=== PATIENT | female | born 1970 ===

== ENCOUNTER 2020-03-04 18:48 | Outpatient (REF) | payer MEDICAID, SELFPAY ==
--- NOTE | 2020-03-04 | MR_ITS ---
MR LUMBAR SPINE WITHOUT CONTRAST CLINICAL INFORMATION: Low back pain and left-sided radiculopathy. COMPARISON: None available. TECHNIQUE: MRI of the lumbar spine was obtained using routine sequences without contrast. FINDINGS: There are 5 nonrib-bearing lumbar-type vertebral bodies. Straightening of the lumbar lordosis. Vertebral body heights are maintained. Lumbar disc volumes are preserved and the lumbar discs remain well-hydrated. There is no bone marrow edema. There are no acute fractures. The conus terminates at the L1 level. There is a small left renal cyst. L1-L2: There is a superiorly migrating left paracentral disc extrusion that compresses the left L1 nerve root within the left L1 lateral recess and as it enters the left L1-L2 neural foramen. No central canal stenosis and no right foraminal stenosis. L2-L3: Disc contour is normal. Bilateral facet arthropathy. No central canal stenosis and no foraminal stenosis. L3-L4: Small annular disc bulge with a superimposed far right lateral disc protrusion that results in mild right-sided foraminal encroachment without compressing the exiting right nerve root. No central canal stenosis. No left foraminal stenosis. L4-L5: Annular disc bulge with a left lateral annular fissure. No central canal stenosis and no foraminal stenosis. L5-S1: Small annular disc bulge and mild bilateral facet arthropathy. No central canal stenosis and no foraminal stenosis. MR/MR lumbar spine wo con IMPRESSION: - At L1-L2, there is a superiorly migrating left paracentral disc extrusion that compresses the left L1 nerve root within the left L1 lateral recess and as it enters the left L1-L2 neural foramen. - Additional mild spondylitic changes as discussed above. No severe central canal stenosis and no severe foraminal stenosis within the lumbar spine.
== END 2020-03-04 18:49 | disposition home or self-care (01) ==
LOC: HO.MRI 18:48
PROVIDERS: PCP Family Medicine; Visit Provider Family Medicine
DX: M54.5 Low back pain (principal)
CPT/HCPCS: 72148

== ENCOUNTER 2020-06-23 15:10 | Outpatient (REF) | payer MEDICAID, SELFPAY ==
--- NOTE | ~2020-06-23 | MM_ITS ---
EXAMINATION: MM SCREENING DIGITAL BREAST TOMOSYNTHESIS, BILATERAL CLINICAL INFORMATION: Screening. Asymptomatic. The lifetime risk of breast cancer based on the Tyrer-Cuzick Model is 15.6%. COMPARISON: Mammography: October 11, 2017 and studies dating back to December 16, 2012 TECHNIQUE: Digital breast tomosynthesis is performed in both the craniocaudal and mediolateral oblique views along with computer-aided detection (CAD). Synthesized 2D images are generated from the tomosynthesis. FINDINGS: There are scattered areas of fibroglandular density (ACR BI-RADS breast composition Category b). There are no significant masses, abnormal calcifications, or other abnormalities. MM/MM tomosynthesis screening BI IMPRESSION: There are no significant changes from prior study. ASSESSMENT: BI-RADS 1: Negative RECOMMENDATION: Routine annual mammography screening. This patient's information was entered into a reminder system with a target due date for their next mammogram.
== END 2020-06-23 15:11 | disposition home or self-care (01) ==
LOC: HO.MAMMO 15:10
PROVIDERS: Visit Provider Family Medicine
DX: Z12.31 Encounter for screening mammogram for malignant neoplasm of breast (principal)
CPT/HCPCS: 77063; 77067

== ENCOUNTER 2020-12-24 16:10 | Outpatient (REF) | payer MEDICAID, SELFPAY ==
--- NOTE | ~2020-12-24 | MR_ITS ---
EXAMINATION: MR ABDOMEN WITHOUT AND WITH CONTRAST CLINICAL INFORMATION: Liver lesion less than 1 cm. COMPARISON: Report from outside prior CT scan without contrast 12/06/2018 TECHNIQUE: MR abdomen was performed without and with use of 6.5 mL intravenous Gadavist gadolinium contrast. Postcontrast images are performed in multiphase dynamic sequences. Imaging was performed in 3 planes. FINDINGS: LUNG BASES: The visualized lung bases are unremarkable. LIVER, GALLBLADDER, AND BILIARY TREE: Liver is normal in size. Smooth hepatic contour. In the lateral aspect of the left lobe of the liver there is a multi lobular well-circumscribed 3.3 x 1.8 cm uniform hyperintense T2 lesion that demonstrates progressive nodular enhancement, classic appearance for a benign cavernous hemangioma. There is a second similar-appearing T2 bright well-circumscribed 2.3 cm lesion with progressive peripheral enhancement along the anterior aspect of left lobe of liver.. In the right lobe of liver there similar appearing 1.3 cm and 1.6 cm, also with typical MRI signal and enhancement characteristics of benign cavernous hemangiomata. The gallbladder is unremarkable with no evidence of gallbladder wall thickening, or obvious pericholecystic inflammatory changes. PANCREAS: Unremarkable. SPLEEN: Normal. ADRENAL GLANDS: Normal. KIDNEYS AND URETERS: The kidneys are normal in size, shape, and enhance symmetrically. No hydronephrosis. No perinephric stranding. GASTROINTESTINAL TRACT: No bowel obstruction. No ascites or fluid collection. ABDOMINAL WALL: No significant hernia is appreciated. LYMPH NODES: No lymphadenopathy. VASCULAR: Unremarkable. OSSEOUS STRUCTURES: Marrow signal normal. MR/MR abdomen wo/w con IMPRESSION: At least 4 lesions are seen within the liver, each with the typical MRI appearance for benign cavernous hepatic hemangiomas for which no imaging follow-up is recommended.
== END 2020-12-24 16:11 | disposition home or self-care (01) ==
LOC: HO.MRI 16:10
PROVIDERS: PCP Family Medicine; Visit Provider Family Medicine
DX: R16.0 Hepatomegaly, not elsewhere classified (principal)
CPT/HCPCS: 74183; A9585

== ENCOUNTER 2021-01-07 12:16 | Outpatient (REF) | payer MEDICAID, SELFPAY ==
[2021-01-07 14:32] LABS: COVID-19 Test Negative (Negative)
== END 2021-01-07 12:17 | disposition home or self-care (01) ==
LOC: HO.LAB 12:16
PROVIDERS: Visit Provider Internal Medicine
DX: Z20.822 Contact with and (suspected) exposure to COVID-19 (principal)
CPT/HCPCS: 36415; 87635; C9803

== ENCOUNTER 2021-06-27 12:34 | Outpatient (REF) | payer MEDICAID, SELFPAY ==
--- NOTE | ~2021-06-27 | MM_ITS ---
EXAMINATION: MM SCREENING DIGITAL BREAST TOMOSYNTHESIS, BILATERAL CLINICAL INFORMATION: Screening. Asymptomatic. The lifetime risk of breast cancer based on the Tyrer-Cuzick Model is 5%. COMPARISON: Mammography: 06/23/2020, 10/11/2017, 05/30/2016 TECHNIQUE: Digital breast tomosynthesis is performed in both the craniocaudal and mediolateral oblique views along with computer-aided detection (CAD). Synthesized 2D images are generated from the tomosynthesis. FINDINGS: There are scattered areas of fibroglandular density (ACR BI-RADS breast composition Category b). There are no significant masses, abnormal calcifications, or other abnormalities. Parenchymal pattern is similar to prior studies. There is no developing density or architectural abnormality. The axilla and skin contours are unremarkable. No significant changes. MM/MM tomosynthesis screening BI IMPRESSION: No mammographic evidence of malignancy. ASSESSMENT: BI-RADS 1: Negative RECOMMENDATION: Routine annual mammography screening. This patient's information was entered into a reminder system with a target due date for their next mammogram.
== END 2021-06-27 12:35 | disposition home or self-care (01) ==
LOC: HO.MAMMO 12:34
PROVIDERS: PCP Family Medicine; Visit Provider Family Medicine
DX: Z12.31 Encounter for screening mammogram for malignant neoplasm of breast (principal)
CPT/HCPCS: 77063; 77067

== ENCOUNTER 2022-05-21 10:16 | Emergency (ER) | payer OTHER, SELFPAY ==
[2022-05-21 10:21] VITALS: BP 140/88; PULSE 82; RESP 16; TEMP 36.4; O2SAT 97; BMI 24.4
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
== END 2022-05-21 11:07 | disposition home or self-care (01) ==
PROVIDERS: Emergency Provider Emergency Medicine; PCP Family Medicine
DX: L02.416 Cutaneous abscess of left lower limb (principal)
CPT/HCPCS: 99282

== ENCOUNTER 2022-08-06 14:54 | Emergency (ER) | payer OTHER, SELFPAY ==
[2022-08-06 15:12] VITALS: BP 155/85; PULSE 71; RESP 16; TEMP 36; O2SAT 96; BMI 24.4
--- NOTE | 2022-08-06 15:47 | ED.GENADULT ---
HPI - General Adult General Chief complaint: Extremity Injury, Lower Stated complaint: left hip swollen/ painful Time Seen by Provider: 08/06/22 15:33 Source: patient Mode of arrival: ambulatory Limitations: no limitations History of Present Illness HPI narrative: Patient is a 51-year-old female with no significant past medical history presenting to the emergency department with swelling, tenderness and erythema to left lateral hip for 2 weeks. She had prior hematoma in a similar area but patient states that her hematoma was distal to current erythema. She also complains of intermittent episodes of chest/epigastric pain lasting several seconds at a time for the past week. She also reports a scratchy throat and hoarse voice for the past several days, denies sore throat. Denies fevers. Denies shortness of breath at rest or associated with episodes of chest pain. Denies any history of bleeding or clotting disorders. Does not take any anticoagulants. Denies any falls, injury, or other trauma to left hip area prior to pain and swelling. Does report history of GERD. Denies abdominal pain, nausea, vomiting, diarrhea or constipation. Denies any radiation of pain from area of left hip swelling. Denies any numbness or tingling. MD complaint: Left hip pain and swelling, chest pain Onset (ago): day(s) Location: chest and lower extremity Radiation: non-radiation Severity: moderate Treatments prior to arrival: none Related Data Previous Rx's Medication Instructions Recorded cephalexin 500 mg capsule 500 mg PO QID 7 days #28 caps 05/21/22 doxycycline hyclate 100 mg tablet 100 mg PO BID 7 days #14 tabs 05/21/22 omeprazole 20 mg capsule,delayed 20 mg PO DAILY #14 caps 08/06/22 release cephalexin 500 mg capsule 500 mg PO QID #39 caps 08/07/22 doxycycline hyclate 100 mg capsule 100 mg PO BID #19 caps 08/07/22 Allergies Allergy/AdvReac Type Severity Reaction Status Date / Time metronidazole [Flagyl] Allergy Unknown Unknown Verified 08/06/22 15:12 Review of Systems Review of Systems: As per HPI. Yes all other systems are reviewed and are negative Constitutional: Constitutional: Reports as per HPI [facility] Social History Social History Advance Directives: No Advance Directives Information Provided: No Physical Exam ED Vital Signs: Vital Signs - 24 hr 08/06/22 15:12 Temperature 96.8 F Pulse Rate 71 Respiratory Rate 16 Blood Pressure 155/85 H Pulse Oximetry 96 Oxygen Delivery Method Room Air BMI result Body Mass Index 24.4 Vital signs have been reviewed and appear to be correct. Blood pressure elevated. Heart rate normal. Respiratory rate normal. Temperature normal. Oxygen saturation normal. Const General: cooperative, healthy appearing and no acute distress Orientation/consciousness: oriented to person, oriented to place, oriented to time and patient oriented x3 Limitations: no limitations HENMT Head: Yes normocephalic and Yes atraumatic Ears: external ears normal General nose exam: Normal external nose present Face and sinus: Yes face symmetric Mouth: oropharynx normal and moist mucous membranes Throat: Yes uvula midline Eyes Pupils: Equal, round and reactive pupils present Neck Neck: Yes normal visual inspection and Yes supple Chest Chest palpation & inspection: normal inspection of the chest and normal palpation of entire chest wall Resp Effort & Inspection: normal respiratory effort and able to speak in complete sentences Auscultation: clear to auscultation bilaterally Cardio Rate: regular rate Rhythm: regular rhythm Heart sounds: S1 normal heart sound present and S2 normal heart sound present GI Inspection: Yes normal to inspection Palpation (GI): Soft to palpation, nontender, no guarding and No Rebound tenderness present Auscultation: normoactive bowel sounds General: Yes no CVA tenderness Back/Spine/Pelvis Back: no CVA tenderness Skin Other: 6x2cm area of fluctuant erythema with warmth, no ulcerations or drainage General skin exam: elasticity normal and turgor normal Neuro General: oriented to person, oriented to place, oriented to time, patient oriented x3, moves all extremities, no focal motor deficits and CN's II-XI intact bilaterally Cranial nerves: Yes Equal, round and reactive pupils present Cognition (Neuro): normal cognition Extrem General: Yes full ROM, Yes no pedal edema and Yes no calf tenderness Psych Mental Status: mental status grossly normal Affect: normal affect Thought process: Normal thought process present Course Reevaluation(s) Reevaluation #1: Received a wet read that the patient has a 3 x 3.1 x 12 cm subcutaneous abscess that extends to the left iliac crest. I discussed with Radiology to make sure this was a superficial abscess and down extend to the muscle or bone and was told that it is only a superficial abscess. Unfortunately our PACS system is down, so I was not able to view the CT scan myself. However given night and appears to be a superficial abscess we will attempt incision and drainage. I discussed this with the patient using a Setswana in to Time: 23:55 Medications Administered Discontinued Medications Generic Name Dose Route Start Last Admin Trade Name Darion PRN Reason Stop Dose Admin Iohexol 100 ml 08/06/22 22:16 08/06/22 22:17 Iohexol 350 Mg/Ml 100 Ml Infus..Btl IV 08/06/22 22:17 85 ml ONCE ONE Administration Ketorolac Tromethamine 15 mg 08/06/22 16:25 08/06/22 18:27 Ketorolac Tromethamine 15 Mg/Ml Vial IVPUSH 08/06/22 16:26 Not Given ONCE ONE Lidocaine/Epinephrine 10 ml 08/07/22 00:14 08/07/22 00:22 Lidocaine Hcl 1%/Epi 1:100,000 10 Ml Vial INFILTRATI 08/07/22 00:15 10 ml ONCE ONE Administration Procedures Abscess I/D Site: other (Left upper thigh) Side (if applicable): left Local Anesthetic: lidocaine 1% and with epi Amount of anesthesia used (mL): 8 Technique: needle aspiration (Aspirated 4 cc to make sure was in the right location for incision and drainage) and incised with blade Amount of fluid expressed (mL): 15 Sent for culture/gram staining?: No Irrigation: Yes Packing used?: [email or web address] Medical Decision Making Medical Decision Making MDM Narrative: Patient is a 51-year-old female with no significant past medical history presenting to the emergency department with swelling, tenderness and erythema to left lateral hip for 2 weeks. Also complaining of scratchy throat, hoarse voice, intermittent chest pain. On exam patient is awake, A+Ox3, VS WNL with exception of mildly elevated blood pressure, afebrile, nontoxic-appearing, normal neurological exam without focal deficits, lung sounds clear to auscultation throughout, abdomen soft and nontender, 6 cm x 2 cm area of erythema, fluctuance and warmth to left lateral hip without drainage. Given reported symptoms and physical exam findings, differential for left hip includes cellulitis, abscess, hematoma. Differentials for chest pain include ACS, GERD, musculoskeletal pain. Plan: Labs including troponin, PT INR, CT soft tissue left hip with IV contrast, EKG, chest x-ray, COVID/flu/strep swabs Labs notable for mild leukocytosis, negative troponin, slightly elevated PTT, otherwise unremarkable. HEART score 1. Strep, flu, Covid, RSV negative. EKG normal sinus rhythm. X-ray chest negative for any acute findings. Feel chest pain and hoarse voice, throat discomfort likely related to GERD. Will prescribe omeprazole. Patient signed out to [facility] [place] pending CT. Differential Diagnosis Differential Diagnoses: The differential diagnosis associated with the presentation includes As above. Lab Data MDM Lab Attestation statement: I reviewed the patient's lab results. See above. 08/06/22 16:24 08/06/22 16:24 Labs: Lab Results 08/06/22 08/06/22 08/06/22 Range/Units 15:43 15:43 16:24 WBC 12.4 H (4.8-10.8) X10*3/uL RBC 5.12 (4.20-5.50) X10*6/uL Hgb 15.5 (12.0-16.0) g/dl Hct 45.0 (37.0-47.0) % MCV 87.9 (80.0-98.0) fL MCH 30.3 (27.0-33.0) pg MCHC 34.4 (31.0-35.0) g/dl RDW 11.7 (11.0-16.0) % Plt Count 340 (160-400) X10*3/uL MPV 9.8 (9.4-12.3) fL Immature Gran % (Auto) 0.3 (0.0-0.4) % Neut % (Auto) 73.4 H (45-73) % Lymph % (Auto) 19.9 L (20-40) % [place] % (Auto) 5.3 (2-11) % Eos % (Auto) 0.7 (0-4) % Baso % (Auto) 0.4 (0-2) % Lymph # (Auto) 2.5 (1.2-4.9) X10*3/uL [place] # (Auto) 0.7 (0.1-1.2) X10*3/uL Eos # (Auto) 0.1 (0.0-0.4) X10*3/uL Baso # (Auto) 0.1 (0.0-0.2) X10*3/uL Abs Immat Gran (auto) 0.04 H (0.00-0.03) X10*3/uL Absolute Neuts (auto) 9.1 H (2.0-8.3) x10*3/uL Absolute Nucleated RBC 0.000 (0.0-0.012) X10*3/uL Nucleated RBC % (auto) 0.0 (0.0-0.2) /100WBC PT (10.0-13.1) SEC INR (0.9-1.1) APTT (26.0-36.4) SEC Sodium (135-145) mmol/L Potassium (3.3-5.1) mmol/L Chloride (96-108) mmol/L Carbon Dioxide (22-29) mmol/L Anion Gap (12-20) BUN (9-16) mg/dL Creatinine (0.5-1.4) mg/dL Estim Creat Clear Calc Estimated GFR Random Glucose (60-115) mg/dL Calcium (8.4-10.2) mg/dL Troponin I High Sens (<3.5-17.0) ng/L Influenza Type A (PCR) NEGATIVE (Negative) Influenza Type B (PCR) NEGATIVE (Negative) RSV RNA Qual (PCR) NEGATIVE (Negative) SARS-CoV-2 RNA (RT-PCR) NEGATIVE (Negative) S. pyogenes GrpA URSZULA Negative (Negative) 08/06/22 08/06/22 08/06/22 Range/Units 16:24 16:24 16:24 WBC (4.8-10.8) X10*3/uL RBC (4.20-5.50) X10*6/uL Hgb (12.0-16.0) g/dl Hct (37.0-47.0) % MCV (80.0-98.0) fL MCH (27.0-33.0) pg MCHC (31.0-35.0) g/dl RDW (11.0-16.0) % Plt Count (160-400) X10*3/uL MPV (9.4-12.3) fL Immature Gran % (Auto) (0.0-0.4) % Neut % (Auto) (45-73) % Lymph % (Auto) (20-40) % [place] % (Auto) (2-11) % Eos % (Auto) (0-4) % Baso % (Auto) (0-2) % Lymph # (Auto) (1.2-4.9) X10*3/uL [place] # (Auto) (0.1-1.2) X10*3/uL Eos # (Auto) (0.0-0.4) X10*3/uL Baso # (Auto) (0.0-0.2) X10*3/uL Abs Immat Gran (auto) (0.00-0.03) X10*3/uL Absolute Neuts (auto) (2.0-8.3) x10*3/uL Absolute Nucleated RBC (0.0-0.012) X10*3/uL Nucleated RBC % (auto) (0.0-0.2) /100WBC PT 11.7 (10.0-13.1) SEC INR 1.0 (0.9-1.1) APTT 37.5 H (26.0-36.4) SEC Sodium 144 (135-145) mmol/L Potassium 3.8 (3.3-5.1) mmol/L Chloride 107 (96-108) mmol/L Carbon Dioxide 26 (22-29) mmol/L Anion Gap 15 (12-20) BUN 14 (9-16) mg/dL Creatinine 0.72 (0.5-1.4) mg/dL Estim Creat Clear Calc 71.2 Estimated GFR > 60 Random Glucose 77 (60-115) mg/dL Calcium 11.6 H (8.4-10.2) mg/dL Troponin I High Sens < 2.7 (<3.5-17.0) ng/L Influenza Type A (PCR) (Negative) Influenza Type B (PCR) (Negative) RSV RNA Qual (PCR) (Negative) SARS-CoV-2 RNA (RT-PCR) (Negative) S. pyogenes GrpA URSZULA (Negative) Independent Interpretation I performed an independent interpretation of an: EKG Interpretation: EKG: normal sinus rhythm, rate 70 bpm, normal PT interval, no evidence of STEMI Unable to independently interpret imaging as PACS system currently down. Radiology Impression Discussion of test interpretation with radiology: I have reviewed the radiologist's reading. Radiologist Impression: CXR: no acute findings External Record Review External record reviewed: Inpatient record, Office record and Outpatient record Prescription Management I considered prescription management with: Pain Medication Scores Heart Score History: -0- slightly suspicious ECG: -0- normal Age: -1- >45 - <65 Risk factory: -0- no risk factors known Troponin: -0- < or = normal limit Score: 1 Risk: 1.7% Discharge Plan Discharge Clinical Impression: Chest pain, Abscess of hip, left Patient Disposition: Still a Patient Instructions: Chest Pain (DC) Additional Instructions: You were evaluated in the emergency department today for chest pain and an abscess to your left hip. Take the antibiotics as prescribed. Return in 48-72 hours for re-evaluation and gauze wick removal Your evaluation has shown no signs of medical conditions requiring emergent intervention at this time, however we recommend that you follow-up with your primary care physician or your retail loss prevention officer as soon as possible for further testing as an outpatient. Please schedule an appointment for follow-up with your primary care physician as soon as possible. Return to the emergency department if you experience worsening or uncontrolled chest pain, shortness of breath, lightheadedness, feeling faint, loss of consciousness, nausea, vomiting, or any other concerning symptoms. Prescriptions: New omeprazole 20 mg capsule,delayed release(DR/EC) 20 mg PO DAILY Qty: 14 0RF doxycycline hyclate 100 mg capsule 100 mg PO BID Qty: 19 0RF cephalexin 500 mg capsule 500 mg PO QID Qty: 39 0RF No Action cephalexin 500 mg capsule 500 mg PO QID 7 Days Qty: 28 0RF doxycycline hyclate 100 mg tablet 100 mg PO BID 7 Days Qty: 14 0RF
--- NOTE | 2022-08-06 17:25 | PC.NURSE ---
several attempts made at IV access, labs obtained, pt in XR at this time
--- NOTE | 2022-08-06 19:38 | PC.NURSE ---
per radiologist Nely, needs additional imaging of left hip- rec CT pelvis- PA [place] informed, CT pelvis w/o con ordered- CT aware
[2022-08-07 01:40] VITALS: BP 123/81; PULSE 80; RESP 18; O2SAT 98
== END 2022-08-07 01:46 | disposition still patient (30) ==
PROVIDERS: Emergency Provider Emergency Medicine Emergency Medical Services; PCP Family Medicine
DX: L02.416 Cutaneous abscess of left lower limb (principal); R10.13 Epigastric pain; R07.9 Chest pain, unspecified; R49.0 Dysphonia; Z20.822 Contact with and (suspected) exposure to COVID-19
CPT/HCPCS: 0241U; 10060; 36415; 71046; 72192; 73701; 80048; 84484; 85025; 85610; 85730; 87651; 93005; 99283; 99284; Q9967

== ENCOUNTER 2022-08-09 14:03 | Inpatient (IN) | payer OTHER, SELFPAY ==
[2022-08-09 14:19] VITALS: BP 149/94; PULSE 101; RESP 20; TEMP 36.9; O2SAT 100; BMI 21.5
--- NOTE | 2022-08-09 14:19 | ED_ITS ---
HPI - General Adult General Chief complaint: Skin/Abscess/Foreign Body Stated complaint: Packing Removal Time Seen by Provider: 08/09/22 16:42 Source: patient Mode of arrival: ambulatory Limitations: no limitations History of Present Illness HPI narrative: 51-year-old female presents for evaluation of worsening abscess to left lateral thigh, she is requesting packing to be removed, patient was seen here on 08/07/19, patient reports that they did incision and drainage since that redness, swelling and warmth has been worsening, she was prescribed doxycycline and Keflex which she has been taking religiously, has not missed any doses. Despite this area appears to look worse. Patient denies fevers, chills, chest pain, shortness of breath, nausea, vomiting, headache, vision changes, dizziness and weakness. Related Data Home Medications Medication Instructions Recorded Confirmed cetirizine 10 mg tablet 10 mg PO DAILY 08/09/22 08/09/22 escitalopram oxalate 20 mg tablet 20 mg PO DAILY 08/09/22 08/09/22 sumatriptan succinate 50 mg tablet 50 mg PO DAILY [id number] PRN Migraine 08/09/22 08/09/22 Headache Previous Rx's Medication Instructions Recorded omeprazole 20 mg capsule,delayed 20 mg PO DAILY #14 caps 08/06/22 release cephalexin 500 mg capsule 500 mg PO QID #39 caps 08/07/22 doxycycline hyclate 100 mg capsule 100 mg PO BID #19 caps 08/07/22 Allergies Allergy/AdvReac Type Severity Reaction Status Date / Time metronidazole [Flagyl] Allergy Unknown Unknown Verified 08/06/22 15:12 Review of Systems Review of Systems: Constitutional : No Fever, No Chills, Cardiovascular : No Chest Pain, No SOB Respiratory : No Dyspnea Gastrointestinal : No abdominal pain Musculoskeletal : No Joint Swelling Skin : No rash, No skin laceration, + redness Neuro : No Weakness, No Numbness Psych : No SI/HI Yes all other systems are reviewed and are negative PMFSH Past Medical History Attestation statement: The following information was validated with the patient. Source: old records reviewed and nursing notes reviewed Social History Social History Advance Directives: No Advance Directives Information Provided: Yes Physical Exam ED Vital Signs: Vital Signs - 24 hr 08/09/22 14:19 08/09/22 17:51 Temperature 98.5 F 98.2 F Pulse Rate 101 H 85 Respiratory Rate 20 16 Blood Pressure 149/94 H Pulse Oximetry 100 98 Oxygen Delivery Method Room Air Room Air BMI result Body Mass Index 21.5 vss Appearance: Alert.? Oriented X3.? No acute distress.? Head: Normocephalic, atraumatic, no step-offs or deformities Eyes: Pupils equal, round and reactive to light.? ENT: Pharynx normal.? Neck: Normal inspection.? Neck supple.? CVS: Normal heart rate and rhythm.? Pulses normal.? Respiratory: No respiratory distress.? Breath sounds normal.? Abdomen: Soft and nontender.? Skin: Skin warm and dry.? Normal skin color.? Normal skin turgor.? + erythema and warmth with purulence draining from I&D site to the left lateral thigh ( images below) Extremities: No lower extremity edema.? No calf ttp. 5/5 strength to bilateral upper and lower extremities Back: No midline tenderness, no C-spine tenderness, full range of motion, no CVA tenderness bilaterally Neuro: Oriented X 3.? No motor deficit.? No sensory deficit. CN 2-12 intact Course Course Course Narrative: RME- 51-year-old female presents for evaluation of packing removal. ? Patient was here 3 days ago and had an abscess to her left thigh area. She was discharged with doxycycline, cephalexin and told to return for packing removal. She reports she still has pain to the area but somewhat improved from prior to the incision and drainage Reevaluation(s) Reevaluation #1: CBC with slight leukocytosis 15.2, Zosyn ordered. Patient difficult stick, t ried a ultrasound-guided line twice without success. Chemistry unremarkable. Negative lactic acid. Patient was seen by surgeon Dr. Harrington who recommends hospitalist admission and surgery will follow while in the hospital. Dr. Hubbard will try ultrasound-guided line Time: 18:37 Medical Decision Making Medical Decision Making [facility] Narrative: 1751 51-year-old female presents with worsening redness and swelling overlying incision site of incision and drainage that occurred on Sunday, taking Keflex and doxy is little to no relief Physical exam with cellulitis to left lateral thigh, incision site with purulence actively draining. Concerns for worsening cellulitis, unlikely exercising infection, threatened limb, no signs of neurovascular compromise. Unlikely osteomyelitis. Plan labs, , blood cultures, lactic acid will give Zosyn. Will likely require hospital admission for failed p.o. antibiotic therapy Differential Diagnosis Differential Diagnoses: The differential diagnosis associated with the pres entation includes Concerns for worsening cellulitis, unlikely exercising infection, threatened limb, no signs of neurovascular compromise. Unlikely osteomyelitis. Admission/Observation Consideration of admission/observation: Escalation of care including admission/observation considered Likely Consult Healthcare Provider Management of the patient was discussed with: Back End Developer (General surgery Dr. Harrington) Lab Data MDM Lab Attestation statement: I reviewed the patient's lab results. 08/09/22 17:25 08/09/22 17:25 Labs: Lab Results 08/09/22 08/09/22 08/09/22 Range/Units 17:25 17:25 17:28 WBC 15.2 H (4.8-10.8) X10*3/uL RBC 4.58 (4.20-5.50) X10*6/uL Hgb 14.0 (12.0-16.0) g/dl Hct 40.5 (37.0-47.0) % MCV 88.4 (80.0-98.0) fL MCH 30.6 (27.0-33.0) pg MCHC 34.6 (31.0-35.0) g/dl RDW 11.9 (11.0-16.0) % Plt Count 344 (160-400) X10*3/uL MPV 9.9 (9.4-12.3) fL Immature Gran % (Auto) 0.5 H (0.0-0.4) % Neut % (Auto) 80.0 H (45-73) % Lymph % (Auto) 14.0 L (20-40) % [place] % (Auto) 4.7 (2-11) % Eos % (Auto) 0.4 (0-4) % Baso % (Auto) 0.4 (0-2) % Lymph # (Auto) 2.1 (1.2-4.9) X10*3/uL [place] # (Auto) 0.7 (0.1-1.2) X10*3/uL Eos # (Auto) 0.1 (0.0-0.4) X10*3/uL Baso # (Auto) 0.1 (0.0-0.2) X10*3/uL Abs Immat Gran (auto) 0.07 H (0.00-0.03) X10*3/uL Absolute Neuts (auto) 12.2 H (2.0-8.3) x10*3/uL Absolute Nucleated RBC 0.000 (0.0-0.012) X10*3/uL Nucleated RBC % (auto) 0.0 (0.0-0.2) /100WBC Sodium 141 (135-145) mmol/L Potassium 4.0 (3.3-5.1) mmol/L Chloride 107 (96-108) mmol/L Carbon Dioxide 23 (22-29) mmol/L Anion Gap 15 (12-20) BUN 15 (9-16) mg/dL Creatinine 0.76 (0.5-1.4) mg/dL Estim Creat Clear Calc 61.5 Estimated GFR > 60 Random Glucose 90 (60-115) mg/dL Lactic Acid 0.6 (0.5-2.0) mmol/L Calcium 11.3 H (8.4-10.2) mg/dL Magnesium 2.0 (1.6-2.6) mg/dL Total Bilirubin 0.8 (0.0-1.0) mg/dL AST 18 (5-31) U/L ALT 10 (0-31) U/L Alkaline Phosphatase 97 (39-117) U/L Total Protein 8.3 H (6.5-8.0) g/dL Albumin 4.5 (3.5-5.0) g/dL Tests considered The following testing was considered but not selected: Considered CT of pelvis/hip however patient had 1 done on 08/06/2022, unlikely any acute findings. Redness and swelling is worsening, no crepitus noted. No need for repeat scan, risk versus benefits thought about. Core Measures AMI core measures followed: Yes Measure exclusions: not indicated Critical Care Time Critical Care Time Critical Care Time: Yes Total Critical Care Time: 35 Attestation: I attest to this time spent taking care of the patient, obtaining history, physical, reviewing labs, imaging, speaking to my attending, speaking to specialist. Discharge Plan Discharge Clinical Impression: Cellulitis, Abscess of skin or subcutaneous tissue Patient Disposition: Admitted As Inpatient
[2022-08-09 17:51] VITALS: PULSE 85; RESP 16; TEMP 36.8; O2SAT 98
--- NOTE | 2022-08-09 17:51 | PHA.MEDREC ---
Pharmacy Consult ? Medication Reconciliation Pharmacy has completed the medication reconciliation. spoke with patient through an skiagrapher. She was able to confirm her medications. She stopped taking the escitalopram and cetirizine the day she started the antibiotics because she did not want to take them at the same time.
--- NOTE | 2022-08-09 18:16 | PC.NURSE ---
pt is very difficult stick, US line tried by PA. awaiting IV placement and blood cultures.
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
--- NOTE | 2022-08-09 18:42 | PC.NURSE ---
IV access not established at this time- line placement attempted by ANASTASIA Alanis, deferred to Stevie SNYDER for US guided placement
--- NOTE | 2022-08-09 19:00 | PC.NURSE ---
IV access still not established at this time. will reattempt
--- NOTE | 2022-08-09 19:11 | PC.NURSE ---
report given to JESSIE Dockery on S3
--- NOTE | 2022-08-09 19:54 | PC.NURSE ---
access established in left bicep- notified via [employer] connect: S3 RN Sarkis
[2022-08-09 20:00] VITALS: BP 155/84; PULSE 81; RESP 20; TEMP 36.1; O2SAT 98
[2022-08-09 20:47] VITALS: BMI 24.1
--- NOTE | 2022-08-09 23:34 | PC.NURSE ---
pt while receiving vancomycin 16 min before finished started itching and had some rash on abdomen and back. MD notified benadryl 25 mg iv given as ordered . pt stated itching improved md ordered to finish vanco. infusion . will monitor
[2022-08-10 03:25] VITALS: BP 126/69; PULSE 74; RESP 14; TEMP 36.3; O2SAT 98
[2022-08-10 06:33] LABS: MANUAL DIFF FLAG NO
[2022-08-10 06:42] LABS: Basophils Absolute Auto 0.1 X10*3/uL (0.0-0.2); Basophils Percent Auto 0.6 % (0-2); Eosinophils Absolute Auto 0.2 X10*3/uL (0.0-0.4); Eosinophils Percent Auto 1.6 % (0-4); Hematocrit 37.6 % (37.0-47.0); Hemoglobin 12.7 g/dl (12.0-16.0); Imm Gran Abs Auto 0.03 X10*3/uL (0.00-0.03); Imm Gran Pct Auto 0.3 % (0.0-0.4); Lymphocytes Percent Auto 31.9 % (20-40); Mean Corpuscular HGB Conc 33.8 g/dl (31.0-35.0); Mean Corpuscular Hemoglobin 30.6 pg (27.0-33.0); Mean Corpuscular Volume 90.6 fL (80.0-98.0); Mean Platelet Volume 10.6 fL (9.4-12.3); Monocytes Absolute Auto 0.7 X10*3/uL (0.1-1.2); Monocytes Percent Auto 7.1 % (2-11); Neutrophils Absolute Auto 5.6 x10*3/uL (2.0-8.3); Neutrophils Percent Auto 58.5 % (45-73); Platelet Count 325 X10*3/uL (160-400); Red Blood Count 4.15 X10*6/uL (4.20-5.50); Red Cell Distribution Width 11.9 % (11.0-16.0); White Blood Count 9.5 X10*3/uL (4.8-10.8)
[2022-08-10 07:07] LABS: Anion Gap 13 (12-20); Blood Urea Nitrogen 13 mg/dL (9-16); Calcium 10.5 mg/dL (8.4-10.2); Carbon Dioxide 22 mmol/L (22-29); Chloride 111 mmol/L (96-108); Creatinine Clr Calc Pharmacy 63.8; Estimated Glomerular Filt Rate > 60; Glucose Random 92 mg/dL (60-115); Potassium 3.8 mmol/L (3.3-5.1); Sodium 142 mmol/L (135-145)
[2022-08-10 07:37] VITALS: BP 127/82; PULSE 76; RESP 16; TEMP 36; O2SAT 100
--- NOTE | 2022-08-10 08:56 | HO.PM.IMPN ---
Subjective Subjective Date of Service: 08/10/22 Interval History: some improvement in pain Physical Exam Vital Signs: Vital Signs: Last Vital Signs Temp 96.8 F 08/10/22 07:37 Pulse 76 08/10/22 07:37 Resp 16 08/10/22 07:37 BP 127/82 08/10/22 07:37 Pulse Ox 100 08/10/22 07:37 O2 Del Method Room Air 08/10/22 07:37 BMI result Body Mass Index 24.1 Const: General: cooperative, healthy appearing and no acute distress Orientation/consciousness: patient oriented x3 Limitations: no limitations HEENT: Head: Yes normal to inspection and Yes atraumatic Ears: hearing grossly normal bilaterally General nose exam: Normal external nose present Face and sinus: Yes normal facial exam Eyes: General: appearance normal, both eyes and all related structures EOM: EOMs intact bilaterally Neck: Neck: Yes normal visual inspection and Yes no meningeal signs Resp: Effort & Inspection: normal respiratory effort and no respiratory distress Auscultation: clear to auscultation bilaterally Cardio: Rate: regular rate Heart sounds: S1 normal heart sound present and S2 normal heart sound present Skin: Rashes: no rashes Neuro: General: patient oriented x3, tone normal and no meningeal signs Gait exam (Neuro): Normal gait present Extrem: Other: Left lateral thigh with medium erythematous indurated lump. No pointing or fluctuance. Not circumferential, no streaking. Warm to touch. + tender Objective Data Active Medications Acetaminophen (Acetaminophen 325 Mg Tablet) 650 mg PO Q6H PRN PRN Reason: Pain, Mild (Pain Scale 1-3) Docusate Sodium (Docusate Sodium 100 Mg Capsule) 100 mg PO DAILY PRN PRN Reason: Constipation Enoxaparin Sodium (Enoxaparin Sodium 40 Mg/0.4 Ml Syringe) 40 mg SUBCUT Q24H [facility] Last Admin: 08/09/22 20:24 Dose: 40 mg Documented By: KOLTON Escitalopram Oxalate (Escitalopram Oxalate 20 Mg Tablet) 20 mg PO DAILY [facility] Last Admin: 08/10/22 08:10 Dose: Not Given Documented By: REGIS Non-Admin Reason: Patient Refused Vancomycin HCl 750 mg/ Sodium (Chloride) 265 mls @ 265 mls/hr IV Q12H [facility] Last Admin: 08/10/22 08:09 Dose: 265 mls/hr Documented By: REGIS Loratadine (Loratadine 10 Mg Tablet) 10 mg PO DAILY [facility] Last Admin: 08/10/22 08:10 Dose: Not Given Documented By: REGIS Non-Admin Reason: Patient Refused Omeprazole (Omeprazole 20 Mg Capsule.) 20 mg PO DAILY@0630 [facility] Last Admin: 08/10/22 06:17 Dose: 20 mg Documented By: ISRRAEL Ondansetron HCl (Ondansetron Hcl 4 Mg/2 Ml Vial) 4 mg IVPUSH Q8H PRN PRN Reason: Nausea and Vomiting Oxycodone HCl (Oxycodone Hcl Immed Release 5 Mg Tablet) 5 mg PO Q6H PRN PRN Reason: Pain, Severe (Pain Scale 7-10) Pharmacy Consult (Consult Rx Perform Med Rec) 1 each MISCELLANE ONCE PRN PRN Reason: Consult order Pharmacy Consult (Consult Rx Vancomycin Dosing) 1 each MISCELLANE DAILY PRN PRN Reason: Consult order Sodium Chloride (0.9 % Sodium Chloride Flush 3 Ml Syringe) 3 ml IVFLUSH QSHIFT [facility] Last Admin: 08/10/22 08:10 Dose: 3 ml Documented By: REGIS Sumatriptan Succinate (Sumatriptan Succinate 50 Mg Tablet) 50 mg PO DAILY MRX1 PRN PRN Reason: Migraine Headache Labs 08/10/22 05:47 08/10/22 05:47 Labs: Laboratory Results - last 24 hr 08/09/22 08/09/22 08/09/22 17:25 17:25 17:28 MCV 88.4 MCH 30.6 MCHC 34.6 RDW 11.9 Plt Count 344 MPV 9.9 Immature Gran % (Auto) 0.5 H Neut % (Auto) 80.0 H Lymph % (Auto) 14.0 L [place] % (Auto) 4.7 Eos % (Auto) 0.4 Baso % (Auto) 0.4 Lymph # (Auto) 2.1 [place] # (Auto) 0.7 Eos # (Auto) 0.1 Baso # (Auto) 0.1 Abs Immat Gran (auto) 0.07 H Absolute Neuts (auto) 12.2 H Absolute Nucleated RBC 0.000 Nucleated RBC % (auto) 0.0 Anion Gap 15 Estim Creat Clear Calc 61.5 Estimated GFR > 60 Random Glucose 90 Lactic Acid 0.6 Calcium 11.3 H Magnesium 2.0 Total Bilirubin 0.8 AST 18 ALT 10 Alkaline Phosphatase 97 Total Protein 8.3 H Albumin 4.5 08/10/22 08/10/22 05:47 05:47 MCV 90.6 MCH 30.6 MCHC 33.8 RDW 11.9 Plt Count 325 MPV 10.6 Immature Gran % (Auto) 0.3 Neut % (Auto) 58.5 Lymph % (Auto) 31.9 [place] % (Auto) 7.1 Eos % (Auto) 1.6 Baso % (Auto) 0.6 Lymph # (Auto) 3.0 [place] # (Auto) 0.7 Eos # (Auto) 0.2 Baso # (Auto) 0.1 Abs Immat Gran (auto) 0.03 Absolute Neuts (auto) 5.6 Absolute Nucleated RBC 0.000 Nucleated RBC % (auto) 0.0 Anion Gap 13 Estim Creat Clear Calc 63.8 Estimated GFR > 60 Random Glucose 92 Lactic Acid Calcium 10.5 H D Magnesium Total Bilirubin AST ALT Alkaline Phosphatase Total Protein Albumin Assessment and Plan (1) Abscess of skin or subcutaneous tissue: Status: Acute Plan 51F PMH migraine, GERD, mood disorder, presented with LLE pain, erythema LLE abscess and cellulitis s/p I and D continue vanc follow up cultures migraines sumatriptan as needed GERD ppi mood disorder lexapro abnormal fat attenuation on pelvic CT ouptatient follow up dvt prophylaxis - lovenox full code reason for continued hospitalization:awaiting cultures Time Spent With Patient Time: Total time managing care of this patient today ____ minutes. Quality Stroke Does the patient have a stroke diagnosis?: No VTE Prior VTE?: No VTE Risk Level:: Medical - moderate - high VTE Device Contraindication: Treatment Not Indicated VTE Drug Contraindication: N/A - Med Ordered
[2022-08-10 15:52] VITALS: BP 140/76; PULSE 75; RESP 20; TEMP 36.1; O2SAT 99
[2022-08-10 19:28] LABS: Vancomycin Random 11.2 mcg/mL (15-20)
--- NOTE | 2022-08-10 19:35 | HE.PHANOTE ---
RE: VANCO Patients level came back this evening at 11.2. However patient has only received a load and one dose of 750 mg. Will continue with 750 mg Q12H to see if level increase. RX insight predicts an AUC of 514 mg/L/hr. Random level in for tomorrow at 1800 08/11/22 to see if level increases. Patients indication is skin infection
[2022-08-10 19:48] VITALS: BP 155/85; PULSE 81; RESP 20; TEMP 36.3; O2SAT 97
[2022-08-11 04:00] VITALS: BP 138/70; PULSE 62; RESP 16; TEMP 36.1; O2SAT 97
[2022-08-11 07:57] VITALS: BP 143/84; PULSE 71; RESP 18; TEMP 35.9; O2SAT 95
[2022-08-11 08:47] LABS: Creatinine Clr Calc Pharmacy 67.2; Estimated Glomerular Filt Rate > 60
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
--- NOTE | 2022-08-11 10:48 | MHC.CM.PN ---
PT REPORTS SHE LIVES WITH HER AND IS INDEPENDENT WITH CARE PT HAS NO SERVICES AND USES NO DME SHE DOES NOT HAVE A HCP, INFORMATION AND DOCUMENT PROVIDED PCP: PHILIP CONNELL PT WILL DC HOME TODAY WITH NO SERVICES TO TRANSPORT
== END 2022-08-11 12:15 | disposition home or self-care (01) | DRG 383 ==
LOC: HO.ED 17:55 → HO.EDOVER 18:34 → HO.S3 19:03
PROVIDERS: Admitting Provider Physician Assistant; Emergency Provider Emergency Medicine; PCP Family Medicine; Visit Provider Internal Medicine
DX: L02.416 Cutaneous abscess of left lower limb (principal); B96.5 Pseudomonas (aeruginosa) (mallei) (pseudomallei) as the cause of diseases classified elsewhere; F39 Unspecified mood [affective] disorder; K21.9 Gastro-esophageal reflux disease without esophagitis; G43.909 Migraine, unspecified, not intractable, without status migrainosus; L03.116 Cellulitis of left lower limb; Z79.899 Other long term (current) drug therapy
CPT/HCPCS: 36415; 80048; 80053; 80202; 82565; 83605; 83735; 85025; 87040; 87070; 87077; 87186; 87205; 99285; J1200; J1650; J2543; J3370; J3371

== ENCOUNTER 2022-09-18 09:52 | Outpatient (REF) | payer OTHER, SELFPAY ==
[2022-09-19 06:17] LABS: CT PCR NOT DETECTED (Not Detect.); NG PCR NOT DETECTED (Not Detect.)
[2022-09-19 15:26] LABS: BV Int Neg Control Negative (Negative); BV Int Pos Control Positive (Positive)
== END 2022-09-18 09:53 | disposition home or self-care (01) ==
LOC: HO.LNP 09:52
PROVIDERS: PCP Family Medicine; Visit Provider Obstetrics & Gynecology
DX: R10.2 Pelvic and perineal pain (principal)
CPT/HCPCS: 0353U; 81003; 81025; 87480; 87510; 87660; 99202

== ENCOUNTER 2022-09-18 09:52 | Outpatient (AMB) | payer OTHER, SELFPAY ==
--- NOTE | 2022-09-18 09:54 | MHC.OFFVIS ---
Intake Vital Signs 09/18/22 10:01 Height 5 ft Weight 130 lb BMI 25.4 BP 130/90 H Intake Visit Reasons: pelvic pain Lard Tub Washer Required: Yes Lard Tub Washer Language: Option Trader Name: Farheen HERNANDEZ Information Interpreted: non-clinical & clinical Superintendent Service: Superintendent Service Present (Farheen) Allergies metronidazole [Flagyl] Allergy (Unknown, Verified 09/18/22 10:03) Unknown Is last menstrual period known: No HPI HPI Comments History of Present Illness Details Presenting complaining of pelvic pain more on the right associated with vaginal discharge with no itching or odor. No other associated urinary or GI symptoms. REPLACED BY [facility] Medical History GERD (gastroesophageal reflux disease) Migraine Mood disorder Surgical History Hx of tubal ligation Family History Family/Other Breast cancer Social History Household Members: Spouse and Family Housing: House Alcohol intake: never Patient Tobacco Use Status: Never used Tobacco Second Hand Smoke Exposure: No Substance Use Type: Marijuana service: No Female Reproductive History Menstrual Age of Menarche: 9 Duration of menses: 6-7 days control method: permanent sterilization Total pregnancies: 4 Full term: 4 Number of Living Children: 4 Date of last pap smear: 10/12/17 (negative) History of abnormal pap smear: No Date of Mammogram: 06/27/21 Review of Systems Const All systems reviewed & are unremarkable except as noted in HPI and below Physical Exam Vital Signs: Last Vital Signs BP 130/90 H 09/18/22 10:01 BMI result Body Mass Index 25.4 General: Yes no CVA tenderness External Female Exam: normal external appearance and normal appearance of the urethra Speculum Exam - Vagina: normal appearance of the vagina, normal palpation, no lesions and no masses Speculum Exam - Cervix: normal appearance of the cervix, normal palpation, no lesions, no masses and nontender Bimanual exam- vagina & uterus: normal bimanual exam, normal palpation, uterine size normal, normal palpation, uterine shape normal, No Cervical tenderness present and non-tender Bimanual Exam- Adnexa, other: normal adnexae Back/Spine/Pelvis Back: no CVA tenderness Assessment & Plan Assessment & Plan (1) Pelvic pain: Code(s): R10.2 - Pelvic and perineal pain Plan: Urine dip and test done in the office were both negative. GC and chlamydia taken and pelvic ultrasound ordered. Discussed with the patient the differential diagnosis of pelvic pain including but not limited to adnexal, uterine masses, pelvic infections (PID), GI the (Irritable bowel syndrome, diverticulitis, others), musculoskeletal, myofascial pain abdominal wall , adhesions, endometriosis, psychological and others causes. Will check results and treat accordingly. All questions answered, the patient verbalized understanding. Instructed the patient to call or go to emergency room in case of worsening of pelvic pain, fever above 100.4, nausea or vomiting and to schedule follow-up appointment in 2 weeks Orders: Orders Bacterial Vaginosis Panel Today R10.2 - Pelvic and perineal pain CT NG by PCR Today R10.2 - Pelvic and perineal pain US pelvic and transvaginal Today R10.2 - Pelvic and perineal pain Coding Level of Care Code New Pt Level 3 (18788) Diagnoses Pelvic pain R10.2
[2022-09-18 10:01] VITALS: BP 130/90; BMI 25.4
== END 2022-09-18 10:36 | disposition home or self-care (01) ==
LOC: HO.HWS 09:52
PROVIDERS: PCP Family Medicine; Visit Provider Obstetrics & Gynecology
DX: R10.2 Pelvic and perineal pain (principal); Z13.9 Encounter for screening, unspecified; Z32.02 Encounter for pregnancy test, result negative
CPT/HCPCS: 99203

== ENCOUNTER 2024-01-23 20:30 | Emergency (ER) | payer OTHER, SELFPAY ==
--- OUTSIDE RECORDS SUMMARY | 2024-01-23 20:32 | XMS_ITS | Continuity of Care Document ---
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 Name Role Phone River SNYDER, Loretta Benton Primary Care Physic chelsea En[phone] Date(s): 12/26/23 - 01/02/24 [facility] [address] [place] [address]- Encounter Diagnosis GERD (gastroesophageal reflux disease)(Discharge Diagnosis) - 12/26/23 Hypertension(Discharge Diagnosis) - 12/26/23 Carpal tunnel syndrome(Discharge Diagnosis) - 12/26/23 Mixed hyperlipidemia(Discharge Diagnosis) - 12/26/23 Attending Physician: River SNYDER, Loretta Benton Encounter Type: Office Visit Allergies, Adverse Reactions, Alerts Substance Criticality Severity Reaction Reaction Severity Status Other Environmental Allergy Pollen Active Immunizations Given and Recorded Vaccine Date Status Refusal Reason influenza virus vaccine, inactivated 1 11/16/21 Gi lori influenza virus vaccine, inactivated 2 12/16/20 Gi lori influenza virus vaccine, inactivated 3 11/28/18 Gi lori influenza virus vaccine, inactivated 03/06/16 Give n influenza virus vaccine, inactivated 01/25/15 Give n influenza virus vaccine, inactivated 11/10/13 Give n tetanus/diphtheria/pertussis, acel(Tdap) 08/31/14 Given 1Result Comment: [facility]: [id number] 2Result Comment: [facility] 58128-060-80 3Result Comment: [facility]# [id number] Medications losartan 25 mg oral tablet 1 tablet = 25 mg, By Mouth, Daily, # 90 tablet, 0 Refills, Maintenance, 11/20/24 12:03:00 PM EST, Tablet, [id number], Partial fill upon patient request if the prescription is for a schedule II opioid drug., 152.4, cm, 12/26/23 11:30:00 EST, Height, 57.3, kg, 08/25/22 10:25:00 EDT, Dry Weight Start Date: 12/26/23 Status: Ordered Quantity: 90.0 Unit: tablet Repeat number: 1 Indication: Essential (primary) hypertension omeprazole 20 mg oral enteric coated capsule 1 capsule = 20 mg, By Mouth, Daily, # 14 capsule, 0 Refills, Maintenance, 12/31/23 11:37:00 AM EST,[id number], Partial fill upon patient request if the prescription is for a schedule II opioid drug., 152.4, cm, 12/26/23 11:30:00 EST, Height, 57.3, kg, 08/25/22 10:25:00 EDT, Dry Weight Start Date: 12/31/23 Stop Date: 01/14/24 Status: Ordered Quantity: 14.0 Unit: capsule Repeat number: 1 sertraline 25 mg oral tablet 1 tablet = 25 mg, By Mouth, Daily, # 30 tablet, 0 Refills, Maintenance, 06/18/23 4:58:00 PM EDT, Tablet, [id number], Partial fill upon patient request if the prescription is for a schedule II opioid drug., 152.4, cm, 06/18/23 15:20:00 EDT, Height, 57.3, kg, 08/25/22 10:25:00 EDT, Dry Weight Start Date: 06/18/23 Status: Ordered Quantity: 30.0 Unit: tablet Repeat number: 1 Indication: Generalized anxiety disorder ZyrTEC 10 mg oral tablet 1 tablet = 10 mg, By Mouth, Daily, # 90 tablet, 3 Refills, Maintenance, 06/26/22 2:17:00 PM EDT, Tablet, [id number], Partial fill upon patient request if the prescription is for a schedule II opioid drug., 152.4, cm, 06/26/22 13:42:00 EDT, Height Start Date: 06/26/22 Status: Ordered Quantity: 90.0 Unit: tablet Repeat number: 4 Problem List Condition Confirmation Course Effective Dates Status H ealth Status Informant Allergic reaction Confirmed Active Allergic rhinitis due to pollen Confirmed Active Breast mass, right Confirmed Active Carpal tunnel syndrome Confirmed Active Chronic back pain Confirmed Active Degenerative disc disease, lumbar Confirmed Active GERD (gastroesophageal reflux disease) Confirmed Active Generalized anxiety disorder Confirmed Active Hepatic hemangioma 1 Confirmed Active Hypertension Confirmed Active Low back pain radiating to left lower extremity Confirmed Active Lumbar radiculopathy Confirmed Active Mixed hyperlipidemia Confirmed Active 1MRI done at [facility] [place] [place] on 12/29/20 Diagnosis Diagnosis Type Effective Dates Health Status Clinical Service Informant GERD (gastroesophageal reflux disease) Discharge Diagnosis 12/26/23 Hypertension Discharge Diagnosis 12/26/23 Carpal tunnel syndrome Discharge Diagnosis 12/26/23 Mixed hyperlipidemia Discharge Diagnosis 12/26/23 Vital Signs Most recent to oldest [Reference Range]: 1 Height 152.4 cm (12/26/23 11:30 AM) Weight 65.7 kg (12/26/23 11:30 AM) Oxygen Saturation [94-100 %] 98 % (12/26/23 11:30 AM) Pulse Rate [55-90 bpm] 87 bpm (12/26/23 11:30 AM) Body Mass Index [18.5-24.99 kg/m2] 28.29 kg/m2 *H* (12/26/23 11:30 AM) Blood Pressure [90-138/55-84 mm Hg] 146/ 81mm Hg *H* (12/26/23 11:30 AM) Mode of Delivery (Oxygen) Room air (12/26/23 11:30 AM) Blood pressure sites Arm, left (12/26/23 11:30 AM) Weight Obtained Via Standing scale (12/26/23 11:30 AM) Social History Social History Type Response Smoking Status Former smoker; Tobac co user in household: No; Other: Quit in 2002; entered on: 10/17/13 Sex Sex Representation Female (finding) Note * Agatha Jones: PERFORM Event Display: Patient Education/Instruction Authored Date: [id number] Ambulatory Adult Visit Summary [address] [id number] Name: MOLLY [place] : 1970?? Visit: 12/26/2023 11:00?? Ambulatory Visit Instructions ?? Your Care Team Primary Care Provider Loretta Holman MD? This Visit Provider Loretta Gonzalez MD Your Diagnosis GERD (gastroesophageal reflux disease) Hypertension Carpal tunnel syndrome Mixed hyperlipidemia Vitals Signs Pulse Rate: 87 bpm Height: 152.4 cm Systolic Blood Pressure:??146 mm Hg??High Weight: 65.7 kg Diastolic Blood Pressure: 81 mm Hg Body Mass Index:??28.29 kg/m2??High Oxygen Saturation: 98 % Body surface area: 1.67 What to do next Scheduled Follow-Up Appointments Sunday 12:40 PM EST ?? With: Loretta Holman MD Where: [address] [address]- Status: Pending Future Orders H. pylori Antigen - Routine, Once, 12/26/23 11:51:00 EST, [facility], Stool?? Lipid Panel - Routine, Once, 12/26/23 12:04:00 EST, Order for Today, [facility], Blood?? Medications The list below reflects the information in our records and provided by you today along with any changes made during this visit. Please continue your medications until treatment is completed or stopped by your provider. If this is different from the information you have or there are other questions,please contact the prescribing provider. What How Much When Why Instructions New Losartan (losartan 25 mg oral tablet) 1 tab(s) Oral Daily Hypertension Pickup at [id number] New Omeprazole (omeprazole 20 mg oral delayed release tablet) 1 tab(s) Oral Daily GERD (gastroesophageal reflux disease) Duration: [address] [id number] Unchanged Cetirizine (ZyrTEC 10 mg oral tablet) 1 tab(s) Oral Daily Unchanged Sertraline (sertraline 25 mg oral tablet) 1 tab(s) Oral Daily Generalized anxiety disorder Pharmacy Information [id number]: [address] [place], [place] [id number] [phone] ?? What How Much When Why Comments Stop Taking Ergocalciferol (ergocalciferol 75116 iu oral capsule) 1 capsule Oral Every week Low vitamin D level Solo necesitar ??tomarlo ashley vez por semana reji 8 semanas. ?? Test Performed Below is a partial list of the tests performed during your Visit. You may have had other tests and procedures not included in this list. Please discuss all test results with your provider. H. pylori Antigen?-- Results Pending -- Lipid Panel?-- Results Pending -- Medications and Immunizations Administered Medications Given During Visit No medications given during this visit.?? Allergies (NKA means No Known Allergies) Other Environmental Allergy??(Pollen) Common Emergency Awareness Tips IS IT A STROKE? Act FAST and Check for these signs: FACE Does the face look uneven? ARM Does one arm drift down? SPEECH Does their speech sound strange? TIME Call at any sign of stroke ?? Heart Attack Signs Chest discomfort: Most heart attacks involve discomfort in the center of the chest and lasts more than a few minutes, or goes away and comes back. It can feel like uncomfortable pressure, squeezing, fullness or pain. Discomfort in upper body: Symptoms can include pain or discomfort in one or both arms, back, neck, jaw or stomach. Shortness of breath: With or without discomfort. Other signs: Breaking out in a cold sweat, nausea, or lightheaded. Remember, MINUTES DO MATTER. If you experience any of these heart attack warning signs, call to get immediate medical attention! ?? Smoking can increase your chances of developing chronic health problems and can cause harmful effects to other family members in your house. If you smoke, you are strongly encouraged to quit. Please call [facility] [facility] at [phone] or [phone] ([phone]) or log in to [email or web address] for referrals to smoking cessation programs. ?? The National Suicide Prevention Hotline is available 28/08 if you or someone you know needs to find a reason to keep living. By calling 4-590-819-Cotera (5283) you'll be connected to a skilled, trained counselor at a crisis center in your area. [facility] [employer] Portal You can view and manage your care through the patient portal or by using a health care fannie of your choosing. [employer] is a website that allows you to securely view your medical information including your hospital discharge summary, office visit summaries, medications and follow-up visits. You can also request appointments, renew medications, and request access to your medical information using a health care fannie of your choosing, or just ask a question. You can enroll at [email or web address] or register during your next office visit. [facility], in keeping with [facility] guidance, no longer requires face masks for staff, patientsor visitors in most situations. Similiar to time spent indoors at other locations, there is the chance that you were exposed to repiratory viruses during your time with us (such as flu or COVID-19). If you develop symptoms concerning for a viral respiratory infection, please seek testing (and treatment if indicated) from your medical provider or home test kit. ?? Disclaimer: The information provided is of a general nature and is intended to be used in conjunction with the recommendations and advice of your health care practitioner. Every effort has been made to ensure that the information provided is accurate and complete at the time it is provided to you however, as your needs change, or, as new information becomes available, different or additional instructions may be required. ?? If you have questions, please consult with your primary care provider or pharmacist, as appropriate. This information is not intended to serve as substitution for assessment and evaluation by a qualified health care provider. If you do not have a primary care provider, you may find a [facility] provider by calling [facility] [employer] Link at [phone]. Patient Care team information Care Team Personnel Name: River SNYDER, Loretta Benton Position: S Physician - Primary Care Member Role: PCP Address: [address] [place] [address] Telecom: Care Team Related Persons Name: MINERVA ANDRE Name: LISA MONTOYA Name: HARSHIL RODARTE Name: THIAGO MANCERA Insurance Providers Guarantor name: [place] Health Plan Information #: 1 Payer: [employer] [facility] [employer] Member Number: [id number] Policy Number: NA Group Number: [id number] Health Plan Information #: 2 Payer: [employer] [facility] [employer] Member Number: [id number] Policy Number: NA Group Number: [id number]
[2024-01-23 21:07] VITALS: BP 142/75; PULSE 72; RESP 18; TEMP 36.4; O2SAT 99; BMI 28.4
[2024-01-23 22:45] VITALS: BP 146/80; PULSE 76; RESP 18; TEMP 36.6; O2SAT 98
--- NOTE | 2024-01-23 23:53 | ED.BACK ---
HPI - Back Pain/Injury General Chief Complaint: Back Pain/Injury Stated Complaint: lower middle back pain/ legs painful Time Seen by Provider: 01/23/24 23:29 Source: patient Limitations: language barrier History of Present Illness ED Provider: Rehana Huntley PA-C HPI Narrative: 53-year-old female presents with low back pain x2 weeks. Patient states she has been having intermittent episodes right-sided low back pain that wraps around her abdomen and down her right lower extremity. Intermittent paresthesias. Denies weakness of lower extremity, saddle anesthesia, urinary retention or bowel incontinence. Patient was supposed to have had an appointment with her primary care provider, but she states they rescheduled. Related Data Home Medications ?Medication ?Instructions ?Recorded ?Confirmed cetirizine 10 mg tablet 10 mg PO DAILY 08/09/22 08/09/22 sumatriptan succinate 50 mg tablet 50 mg PO DAILY MRX1 PRN Migraine 08/09/22 08/09/22 Headache Previous Rx's ?Medication ?Instructions ?Recorded omeprazole 20 mg capsule,delayed 20 mg PO DAILY #14 caps 08/06/22 release ketorolac 10 mg tablet 10 mg PO Q6H #20 tabs 01/24/24 methocarbamol 750 mg tablet 750 mg PO Q8H PRN pain #15 tabs 01/24/24 Allergies Allergy/AdvReac Type Severity Reaction Status Date / Time metronidazole [Flagyl] Allergy Unknown Unknown Verified 01/23/24 21:11 Review of Systems Review of Systems: Yes all other systems are reviewed and are negative Constitutional: Constitutional: Denies fatigue and Denies fever(s) Cardiovascular: Cardiovascular: Denies chest pain and Denies dyspnea Respiratory: Respiratory: Denies cough and Denies dyspnea Gastrointestinal: Gastrointestinal: Reports abdominal pain, Denies nausea and Denies vomiting Genitourinary: Genitourinary: Denies dysuria and Denies urinary hesitancy Musculoskeletal: Musculoskeletal: Reports back pain Endocrine: Endocrine: Denies fatigue PMFSH Past Medical History Attestation statement: The following information was validated with the patient. Medical History GERD (gastroesophageal reflux disease) Migraine Mood disorder Surgical History Hx of tubal ligation Family History Family History Family/Other Breast cancer Social History Social History Household Members: Spouse and Family Housing: House Alcohol intake: never Patient Tobacco Use Status: Never used Tobacco Second Hand Smoke Exposure: No Substance Use Type: Marijuana Advance Directives: No Advance Directives Information Provided: Yes service: No Physical Exam Vital Signs: Vital Signs: Last Vital Signs Temp 97.8 F 01/23/24 22:45 Pulse 76 01/23/24 22:45 Resp 18 01/23/24 22:45 BP 146/80 H 01/23/24 22:45 Pulse Ox 98 01/23/24 22:45 O2 Del Method Room Air 01/23/24 22:45 BMI result Body Mass Index 28.4 Const: Other: Alert, well in appearance Orientation/consciousness: patient oriented x3 Resp: Other: Nonlabored respiration Cardio: Other: Normal peripheral perfusion Skin: Other: Warm dry no rash Neuro: General: patient oriented x3, gait normal, no focal motor deficits and CN's II-XI intact bilaterally Psych: Other: Calm cooperative Medical Decision Making Medical Decision Making MDM Narrative: 53-year-old female presents with low back pain x2 weeks. Patient states she has been having intermittent episodes right-sided low back pain that wraps around her abdomen and down her right lower extremity. Intermittent paresthesias. Denies weakness of lower extremity, saddle anesthesia, urinary retention or bowel incontinence. Patient was supposed to have had an appointment with her primary care provider, but she states they rescheduled No known chronic issues History: Per patient I have considered the following differential diagnoses: Lumbar strain, lumbar radiculopathy/sciatica, SCA, cauda equina Plan: Patient is having radicular symptoms, she has no red flag signs symptoms concerning for cord compression. She has no risk factors for SCA. We will send with a muscle relaxant and an NSAID. No indication for imaging. Discharge Plan Discharge Clinical Impression: Right lumbar radiculopathy Patient Disposition: Home, Self-Care Instructions: Lumbar Radiculopathy (ED) Additional Instructions: You are being treated for lumbar radiculopathy, from what you described you have inflammation that is affecting some of the nerve roots in your back. Use the methocarbamol as needed for pain, this is a muscle relaxant, it will cause drowsiness, do not drive or operate machinery while taking the medication. Use the ketorolac, this is an anti-inflammatory, as directed. You need to follow up with primary care, you may require physical therapy as an outpatient. If your symptoms persist, again, you may require additional assessment as an outpatient, you may require an MRI, this will be ordered by your primary care provider. Prescriptions: New ketorolac 10 mg tablet 10 mg PO Q6H Qty: 20 0RF Rx Instructions: maximum total duration of 5 days from all oral, intranasal, or parenteral formulations. The patient received an intramuscular dose of ketorolac here in the emergency department. methocarbamol 750 mg tablet 750 mg PO Q8H PRN (Reason: pain) Qty: 15 0RF No Action omeprazole 20 mg capsule,delayed release(DR/EC) 20 mg PO DAILY Qty: 14 0RF cetirizine 10 mg tablet 10 mg PO DAILY sumatriptan succinate 50 mg tablet 50 mg PO DAILY MRX1 PRN (Reason: Migraine Headache) Rx Instructions: MRX1 after 2 hours. Max of 2 doses Stand Alone Forms: Work/School Release Print Language: Pashto
[2024-01-24 00:21] VITALS: BP 168/92; PULSE 68; RESP 20; TEMP 36.6; O2SAT 98
[2024-01-24] MEDS: Ketorolac Tromethamine 15 MG/ML VIAL IM (00:38)
[2024-01-24] MEDS: methocarbamoL 750 MG TABLET PO (00:38)
[2024-01-24 00:42] VITALS: BP 168/92; PULSE 68; RESP 20; TEMP 36.6; O2SAT 98
== END 2024-01-24 00:45 | disposition home or self-care (01) ==
PROVIDERS: Emergency Provider Emergency Medicine; PCP Family Medicine
DX: M54.16 Radiculopathy, lumbar region (principal); M54.50 Low back pain, unspecified; Z79.899 Other long term (current) drug therapy
CPT/HCPCS: 96372; 99284; J1885